=== PATIENT | female | born 1985 | race Caucasian/White ===

== ENCOUNTER 2017-08-06 16:27 | Observation (INO) | payer MEDICAID ==
[~2017-08-06] VITALS: Ht 162.6 cm; Wt 88.0 kg
[2017-08-06] MEDS ORDERED: PREN1TAB78 MT (17:04)
== END 2017-08-06 21:20 | disposition home or self-care (01) ==
LOC: ER 16:42 → L&D 16:46
PROVIDERS: ADMIT Obstetrics & Gynecology; ATTEND Obstetrics & Gynecology
DX: O26.892 Other specified pregnancy related conditions, second trimester (principal); R10.30 Lower abdominal pain, unspecified; M54.2 Cervicalgia; M54.9 Dorsalgia, unspecified
CPT/HCPCS: 76805; 76818; G0378; J7120

== ENCOUNTER 2017-08-06 21:28 | Emergency (ER) | payer MEDICAID ==
[~2017-08-06] VITALS: Ht 162.6 cm; Wt 86.0 kg
[~2017-08-06 21:28] MED LIST: PREN1TAB78 MT
[2017-08-07] VITALS: BP 110/64
[2017-08-07] MEDS ORDERED: ACETAMINOPHEN 325MG TABLET PO ONE (00:15)
== END 2017-08-07 00:35 | disposition home or self-care (01) ==
LOC: ER 23:08
DX: O9A.213 Injury, poisoning and certain other consequences of external causes complicating pregnancy, third trimester (principal); S39.012A Strain of muscle, fascia and tendon of lower back, initial encounter; M54.2 Cervicalgia; Z3A.29 29 weeks gestation of pregnancy; V43.62XA Car passenger injured in collision with other type car in traffic accident, initial encounter; Y93.89 Activity, other specified; Y92.89 Other specified places as the place of occurrence of the external cause; Y99.8 Other external cause status
CPT/HCPCS: 99283

== ENCOUNTER 2023-02-18 15:07 | Emergency (ER) | payer MEDICAID ==
[~2023-02-18] VITALS: Ht 167.6 cm; Wt 91.0 kg
[2023-02-18 15:21] VITALS: O2SAT 98
[2023-02-18] MEDS ORDERED: FLUT9.9S BOTHNSTRLS (18:05)
[2023-02-18] MEDS ORDERED: P50 MT (18:05)
[2023-02-18] MEDS ORDERED: LORA10TA64 MT (18:05)
[2023-02-18] MEDS ORDERED: ONDA4TAB50 MT (18:10)
[2023-02-18] MEDS ORDERED: ONDANSETRON 4MG ODT PO ONE (18:15)
[2023-02-18 18:59] VITALS: BP 126/78; PULSE 87; RESP 18; TEMP 98.1
== END 2023-02-18 19:02 | disposition home or self-care (01) ==
LOC: ER 15:07
DX: L50.9 Urticaria, unspecified (principal); J30.9 Allergic rhinitis, unspecified; Z20.822 Contact with and (suspected) exposure to COVID-19
CPT/HCPCS: 99283; 87426; 81025; Q0162; C9803